=== PATIENT | male | born 1970 | race Caucasian/White ===

== ENCOUNTER 2023-03-28 17:44 | Emergency (ER) | payer SELFPAY ==
[2023-03-28 18:09] LABS: BASOPHILS ABSOLUTE AUTO 0.05 K/uL (0.00-0.20); BASOPHILS PERCENT AUTO 0.6 % (0.0-2.0); EOSINOPHILS ABSOLUTE AUTO 0.26 K/uL (0.00-0.50); EOSINOPHILS PERCENT AUTO 3.1 % (0.0-5.0); HEMATOCRIT 38.4 % (39.0-49.0); HEMOGLOBIN 13.2 g/dL (13.1-16.8); LYMPHOCYTES ABSOLUTE AUTO 1.87 K/uL (0.50-3.50); MEAN CORPUSCULAR HEMOGLOBIN 33.1 pg (28.2-33.3); MEAN CORPUSCULAR HGB CONC 34.4 g/dL (31.7-36.0); MEAN CORPUSCULAR VOLUME 96.2 fL (84.0-98.0); MONOCYTES ABSOLUTE AUTO 0.64 K/uL (0.00-1.00); MONOCYTES PERCENT AUTO 7.5 % (2.0-14.0); NEUTROPHILS ABSOLUTE AUTO 5.67 K/uL (1.40-7.00); NEUTROPHILS PERCENT AUTO 66.8 % (45.0-80.0); PLATELET COUNT,PLT 305 K/uL (150-350); RED BLOOD CELL COUNT 3.99 M/uL (4.33-5.41); RED CELL DISTRIBUTION WIDTH 13.6 % (11.2-14.1); WHITE BLOOD CELL COUNT,WBC 8.5 K/uL (4.0-10.2)
[2023-03-28 18:11] LABS: INR 0.9 (0.9-1.1); PROTHROMBIN TIME 8.9 SEC (9.0-11.1)
[2023-03-28 18:23] LABS: ALBUMIN 4.2 g/dL (3.4-5.0); ANION GAP 17.2 meq/L (7-15); BILIRUBIN TOTAL 0.4 mg/dL (0.2-1.0); CALCIUM 9.5 mg/dL (8.5-10.1); CARBON DIOXIDE,CO2 21.8 mmol/L (21.0-32.0); CREATININE 1.24 mg/dL (0.51-1.17); EST CRCL DRUG DOSING (CG) 65.29 mL/min; POTASSIUM,K 4.2 mmol/L (3.5-5.1); PROTEIN TOTAL,TP 7.4 g/dL (6.4-8.2)
[2023-03-28] MEDS: Diphtheria,Pertussis(Acell),Tetanus Vaccine 0.5 ML Syringe IM ONE (19:43)
== END 2023-03-28 20:46 | disposition home or self-care (01) ==
LOC: LL.ED 17:44
DX: S01.01XA Laceration without foreign body of scalp, initial encounter (principal); S09.90XA Unspecified injury of head, initial encounter; R55 Syncope and collapse; Z23 Encounter for immunization; E11.9 Type 2 diabetes mellitus without complications; F17.210 Nicotine dependence, cigarettes, uncomplicated; Z79.899 Other long term (current) drug therapy; Z79.4 Long term (current) use of insulin; W19.XXXA Unspecified fall, initial encounter; Y92.89 Other specified places as the place of occurrence of the external cause; Y99.0 Civilian activity done for income or pay
CPT/HCPCS: 12002; 36415; 70450; 71045; 80053; 82947; 84484; 85025; 85610; 90471; 90715; 93005; 93010; 99284; 99285-25

== ENCOUNTER 2024-08-28 17:20 | Emergency (ER) | payer OTHER ==
[2024-08-28 17:50] LABS: BASOPHILS ABSOLUTE AUTO 0.04 K/uL (0.00-0.20); BASOPHILS PERCENT AUTO 0.4 % (0.0-2.0); EOSINOPHILS ABSOLUTE AUTO 0.10 K/uL (0.00-0.50); EOSINOPHILS PERCENT AUTO 0.9 % (0.0-5.0); IMMATURE GRAN ABSOLUTE AUTO 0.01 10^3/uL (0.00-0.04); IMMATURE GRAN PERCENT AUTO 0.1 % (0.0-0.4); LYMPHOCYTES ABSOLUTE AUTO 1.53 K/uL (0.50-3.50); LYMPHOCYTES PERCENT AUTO 14.0 % (10.0-50.0); MONOCYTES ABSOLUTE AUTO 0.77 K/uL (0.00-1.00); MONOCYTES PERCENT AUTO 7.0 % (2.0-14.0); NEUTROPHILS ABSOLUTE AUTO 8.49 K/uL (1.40-7.00); NEUTROPHILS PERCENT AUTO 77.6 % (45.0-80.0); PLATELET COUNT,PLT 292 K/uL (150-350); RED BLOOD CELL COUNT 3.98 M/uL (4.33-5.41); RED CELL DISTRIBUTION WIDTH 13.1 % (11.2-14.1); WHITE BLOOD CELL COUNT,WBC 10.9 K/uL (4.0-10.2)
[2024-08-28 18:10] LABS: ALANINE AMINOTRANSFERASE,ALT 35.0 U/L (12-78); ASPARTATE AMNIOTRANSFERASE,AST 39.0 U/L (15-37); BILIRUBIN TOTAL 0.4 mg/dL (0.2-1.0); BLOOD UREA NITROGEN,BUN 21.0 mg/dL (7-18); CARBON DIOXIDE,CO2 25.4 mmol/L (21.0-32.0); CHLORIDE,CL 95.0 mmol/L (98-107); CREATININE 1.14 mg/dL (0.51-1.17); EST CRCL DRUG DOSING (CG) 70.1 mL/min; ESTIMATED GFR 76.0 mL/min (>=60); GLUCOSE RANDOM 268.0 mg/dL (70-99); POTASSIUM,K 4.2 mmol/L (3.5-5.1); PROTEIN TOTAL,TP 7.0 g/dL (6.4-8.2); SODIUM,NA 133.0 mmol/L (136-145)
== END 2024-08-28 19:25 | disposition home or self-care (01) ==
LOC: LL.ED 17:20
DX: R07.89 Other chest pain (principal); E11.9 Type 2 diabetes mellitus without complications; F17.200 Nicotine dependence, unspecified, uncomplicated; Z79.4 Long term (current) use of insulin; Z79.899 Other long term (current) drug therapy
CPT/HCPCS: 36415; 71046; 80053; 85025; 85379; 99283